=== PATIENT | female | born 1945 | race Caucasian/White ===

== ENCOUNTER 2016-10-25 09:22 | Emergency (ER) | payer MEDICARE, BC ==
[2016-10-25] MEDS ORDERED: Tetan/Diph/Pertus SYR(Tdap)* 0.5 ML SYR(BOOSTRIX) use SYR IM ONE (10:33)
--- NOTE | 2016-10-25 10:36 | UC ---
Bite Injury/Animal HPI - HPI Summary HPI Summary: Patient was bit by her pet rabbit, when her dog scared the rabbit, small puncture on pad of left middile finger, 2 cm lac from the bottom of nail down the finger, not deep, well approximated. - History of Current Complaint Chief Complaint: UCGeneralIllness Stated Complaint: SINUSES,THROAT,CONGESTION Time Seen by Provider: 10/25/16 10:23 Hx Obtained From: Patient ?: No Severity Currently: Mild Severity Initially: Mild Pain Intensity: 5 Pain Scale Used: 0-10 Numeric Onset/Duration: Sudden Onset Type of Bite: Pet Has Animal Been Immunized?: N/A Character: Puncture, Abrasion/Laceration Aggravating Factor(s): Nothing Alleviating Factor(s): Nothing Hx of Bite: Provoked by: - dog Animal Available for Observation: Yes Animal Control Notified: No - Risk Factors Infection/Sepsis Risk Factors: Negative - Allergies/Home Medications Allergies/Adverse Reactions: Allergies Allergy/AdvReac Type Severity Reaction Status Date / Time Alendronate [From Fosamax] Allergy Joint Pain Verified 10/25/16 10:01 Azithromycin Allergy Rash Verified 10/25/16 10:01 Cefixime [From Suprax] Allergy Hives Verified 10/25/16 10:01 Meperidine [From Demerol HCl] Allergy GI Upset Verified 10/25/16 10:01 Moxifloxacin [From Avelox] Allergy Hives Verified 10/25/16 10:01 Sodium Benzoate [From Suprax] Allergy Hives Verified 10/25/16 10:01 Home Medications: Home Medications ALPRAZolam TAB* [Xanax TAB*] 0.5 tab PO Q4H PRN 10/25/16 [History Confirmed ] Aspirin EC Low Dose* [Ecotrin EC Low Dose*] 81 mg PO DAILY 10/25/16 [History Confirmed 10/25/16] Lisinopril TAB* [Prinivil TAB*] 10 mg PO DAILY 10/25/16 [History Confirmed 10/25] Phenylephrine-Chlorpheniramine [[place] Plus Cold &] 1 cap PO Q6H PRN 10/25 [History Confirmed 10/25/16] PMH/Surg Hx/FS Hx/Imm Hx Endocrine History Of: Denies: Diabetes, Thyroid Disease Cardiovascular History Of: Reports: Hypertension Denies: Cardiac Disorders Respiratory History Of: Denies: COPD, Asthma GI/ History Of: Denies: Ulcer Cancer History Of: Denies: Breast Cancer - Surgical History Surgical History: Yes Surgery Procedure, Year, and Place: right leg thigh muscle, D&C - Social History Alcohol Use: None Substance Use Type: None Smoking Status (MU): Never Smoked Tobacco - Immunization History Most Recent Tetanus Shot: ? Physical Exam Vital Signs: Initial Vital Signs Temp 98.7 F 10/25/16 10:04 Pulse 95 10/25/16 10:04 Resp 16 10/25/16 10:04 BP 138/63 10/25/16 10:04 Pulse Ox 99 10/25/16 10:04 Discharge - Discharge Plan Prescriptions: Sulfamethox/Trimethoprim DS* [Bactrim DS 800/160 TAB*] 1 tab PO BID #10 tab
--- NOTE | 2016-10-25 10:47 | UC ---
Throat Pain/Nasal Marshal HPI - HPI Summary HPI Summary: Patient has had sore throt for 5 days, was away on vacation, has not improved, now has a cough and right sided ear pain. - History of Current Complaint Chief Complaint: UCGeneralIllness Stated Complaint: SINUSES,THROAT,CONGESTION Time Seen by Provider: 10/25/16 10:23 Hx Obtained From: Patient ?: No Onset/Duration: Sudden Onset, Lasting Days Severity: Moderate Pain Intensity: 6 Pain Scale Used: 0-10 Numeric Cough: Nonproductive Associated Signs & Symptoms: Positive: Dysphagia, Sinus Discomfort - Epiglottits Risk Factors Epiglottis Risk Factors: Negative - Allergies/Home Medications Allergies/Adverse Reactions: Allergies Allergy/AdvReac Type Severity Reaction Status Date / Time Alendronate [From Fosamax] Allergy Joint Pain Verified 10/25/16 10:01 Azithromycin Allergy Rash Verified 10/25/16 10:01 Cefixime [From Suprax] Allergy Hives Verified 10/25/16 10:01 Meperidine [From Demerol HCl] Allergy GI Upset Verified 10/25/16 10:01 Moxifloxacin [From Avelox] Allergy Hives Verified 10/25/16 10:01 Sodium Benzoate [From Suprax] Allergy Hives Verified 10/25/16 10:01 Home Medications: Home Medications ALPRAZolam TAB* [Xanax TAB*] 0.5 tab PO Q4H PRN 10/25/16 [History Confirmed ] Aspirin EC Low Dose* [Ecotrin EC Low Dose*] 81 mg PO DAILY 10/25/16 [History Confirmed 10/25/16] Lisinopril TAB* [Prinivil TAB*] 10 mg PO DAILY 10/25/16 [History Confirmed 10/25] Phenylephrine-Chlorpheniramine [[place] Plus Cold &] 1 cap PO Q6H PRN 10/25 [History Confirmed 10/25/16] PMH/Surg Hx/FS Hx/Imm Hx Previously Healthy: Yes Endocrine History Of: Denies: Diabetes, Thyroid Disease Cardiovascular History Of: Reports: Hypertension Denies: Cardiac Disorders Respiratory History Of: Denies: COPD, Asthma GI/ History Of: Denies: Ulcer Cancer History Of: Denies: Breast Cancer - Surgical History Surgical History: Yes Surgery Procedure, Year, and Place: right leg thigh muscle, D&C - Family History Known Family History: Positive: Hypertension - Social History Alcohol Use: None Substance Use Type: None Smoking Status (MU): Never Smoked Tobacco - Immunization History Most Recent Tetanus Shot: ? Review of Systems Constitutional: Fatigue Skin: Negative Eyes: Negative ENT: Sore Throat, Ear Ache Respiratory: Cough Cardiovascular: Negative Gastrointestinal: Negative Genitourinary: Negative Motor: Negative Neurovascular: Negative Neurological: Headache Psychological: Negative All Other Systems Reviewed And Are Negative: Yes Physical Exam Triage Information Reviewed: Yes Appearance: Well-Nourished, Ill-Appearing, Pain Distress Vital Signs: Initial Vital Signs Temp 98.7 F 10/25/16 10:04 Pulse 95 10/25/16 10:04 Resp 16 10/25/16 10:04 BP 138/63 10/25/16 10:04 Pulse Ox 99 10/25/16 10:04 Vital Signs Reviewed: Yes Eye Exam: Normal Eyes: Positive: Conjunctiva Clear ENT: Positive: Pharyngeal erythema, Nasal congestion, Nasal drainage, TM bulging , TM red, Tonsillar swelling, Tonsillar exudate, Other: - right side frontal and maxialary sinus pressure Dental Exam: Normal Neck exam: Normal Neck: Positive: Supple, Nontender, No Lymphadenopathy Respiratory Exam: Normal Respiratory: Positive: Chest non-tender, Lungs clear, Normal breath sounds Cardiovascular Exam: Normal Cardiovascular: Positive: RRR, No Murmur, Pulses Normal Abdominal Exam: Normal Abdomen Description: Positive: Nontender, No Organomegaly, Soft Bowel Sounds: Positive: Present Musculoskeletal Exam: Normal Musculoskeletal: Positive: Strength Intact, ROM Intact, No Edema Neurological Exam: Normal Neurological: Positive: Alert, Muscle Tone Normal Psychological Exam: Normal Skin Exam: Normal Throat Pain/Nasal Course/Dx - Course Course Of Treatment: hx obtained, exam performed,rapid strep negative, meds prescribed for sinustits. . - Differential Dx/Diagnosis Differential Diagnosis/HQI/PQRI: Influenza, Laryngitis, Otitis Media, Pharyngitis, Sinusitis, Tonsillitis, URI Provider Diagnoses: sinusitis. pharyngitis Discharge - Discharge Plan Condition: Stable Disposition: HOME Prescriptions: Amoxicillin/Clavulanate TAB* [Augmentin TAB 875*] 875 mg PO BID #20 tab Sulfamethox/Trimethoprim DS* [Bactrim DS 800/160 TAB*] 1 tab PO BID #10 tab Patient Education Materials: Sinusitis (ED)
[2016-10-25 11:23] VITALS: BP 140/56
== END 2016-10-25 11:25 | disposition home or self-care (01) ==
LOC: UCCORT 09:22
DX: J32.9 Chronic sinusitis, unspecified (principal); I10 Essential (primary) hypertension; Z88.1 Allergy status to other antibiotic agents; Z88.8 Allergy status to other drugs, medicaments and biological substances
CPT/HCPCS: 87651; 99212; G0463